=== PATIENT | male | born 1955 | race Caucasian/White ===

== ENCOUNTER 2016-03-30 07:22 | Observation (INO) | payer BC ==
[2016-03-30] MEDS ORDERED: Morphine INJ* 4 MG/ML 1 ML CARPUJECT IV ONE (08:14)
[2016-03-30] MEDS ORDERED: Pantoprazole IV* 40 MG IV ONE (08:14)
[2016-03-30] MEDS ORDERED: Ondansetron INJ* 2 MG/ML VIAL IV ONE (08:14)
[2016-03-30] MEDS: NS 0.9% 1000 ML* 3,000 ML IV ONE ×2 (08:27→08:42)
[2016-03-30] MEDS ORDERED: Acetaminophen TAB* 325 MG PO ONE (08:29)
[2016-03-30 08:31] LABS: Hematocrit 43 % (42-52); Hemoglobin 14.4 g/dl (14.0-18.0); Mean Corpuscular HGB Conc 34 g/dl (31-36); Mean Corpuscular Hemoglobin 30 pg (27-31); Mean Corpuscular Volume 90 fL (80-94); Mean Platelet Volume 9 um3 (7.4-10.4); Red Blood Count 4.76 10^6/ul (4.0-5.4); Red Cell Distribution Width 13 % (10.5-15); White Blood Count 11.8 10^3/ul (3.5-10.8)
[2016-03-30 08:44] LABS: Albumin 4.2 g/dL (3.2-5.2); BUN/Creatinine Ratio 12.4 (8-20); C Reactive Protein 19.08 mg/L (< 5.00); Calcium 9.2 mg/dL (8.6-10.3); EGFR Non-African American 72.3 (>60); Globulin 3.4 g/dL (2-4); Potassium 3.8 mmol/L (3.5-5.0); Total Bilirubin 0.6 mg/dL (0.2-1.0); Total Protein 7.6 g/dL (6.4-8.9)
[2016-03-30 08:45] LABS: Troponin I 0.01 ng/mL (<0.04)
--- NOTE | 2016-03-30 08:57 | RAD ---
INDICATION: Cough, fever. Weakness. Abdominal pain. COMPARISON: September 11, 2005 TECHNIQUE: Dual energy PA and routine lateral views of the chest were obtained. REPORT: LEFT epicardial fat pad noted. Clear lungs and pleural spaces. No alveolar consolidation, focal pulmonary lesion, pleural effusion, pneumothorax. The heart, pulmonary vasculature, and mediastinal contours are unremarkable. Negative for free air beneath the diaphragm. IMPRESSION: No evidence for acute intrathoracic disease.
[2016-03-30 10:13] LABS: Urine Bacteria Absent (Absent); Urine Bilirubin Negative (Negative); Urine Glucose 1+(50 mg/dL) (Negative); Urine Nitrite Negative (Negative)
[2016-03-30] MEDS ORDERED: Iohexol 350* (CONTRAST) 500 ML MDV IV ONE (10:15)
--- NOTE | 2016-03-30 11:36 | RAD ---
INDICATION: Epigastric pain and vomiting. COMPARISON: There are no prior studies available for comparison. TECHNIQUE: A CT scan of the abdomen and pelvis was performed with intravenous and oral contrast following intravenous injection of 92 ml of Omnipaque 300 nonionic contrast. Contiguous axial sections were obtained from the lung bases through the symphysis pubis. Images were reconstructed in the coronal and sagittal planes. FINDINGS: There is mild dependent bilateral lower lobe subsegmental atelectasis. No pleural effusion is present. The liver is normal in size. There is a fluid density lesion in the lateral segment of the left hepatic lobe measuring 1.6 cm in diameter most consistent with a cyst. The spleen is normal in size with a large geographic area of decreased density and enhancement involving the anterior inferior portion of the spleen most consistent with a splenic infarct. The main portions of the splenic artery and vein appear patent. In the region of the splenic hilum thrombus is noted within a vessel which appears to be in a branch of the splenic artery. The pancreas appears to be within normal limits. No calcific gallstones are seen. The kidneys and adrenal glands are normal in size. No hydronephrosis is seen. There is a small cyst present in the upper pole of the right kidney arising from the cortex measuring 1.6 cm in size. The prostate gland is enlarged measuring 6.5 cm in transverse dimension. The aorta demonstrates normal homogeneous contrast opacification and appears widely patent without evidence for significant atherosclerotic change or aneurysm. No significant enlarged retroperitoneal lymph nodes are seen. The stomach, small and large bowel appear nondistended. The appendix is within normal limits. There is mild descending and sigmoid diverticulosis without evidence for diverticulitis. No free intraperitoneal air or fluid is seen. No significant focal osseous abnormality is seen. The results of this exam were discussed with the referring clinician. IMPRESSION: 1. 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 2. SMALL HEPATIC AND RENAL CYSTS. 3. ENLARGED PROSTATE GLAND.
--- NOTE | 2016-03-30 13:49 | ED ---
Kyler Smith Matthew, scribed for Yuniel Sher MD on 03/30/16 at 0820 . Abdominal Pain/Male - HPI Summary HPI Summary: A 60 y/o male presents to the ED with sudden, constant RUQ and epigastric abdominal pain since 14:00 yesterday. The pain is rated 6/10 in severity, and does not radiate. The pain is occasional worse with movement. He is also weak with standing. Associated symptoms include vomiting, nausea, fever - 101.3 at its highest, chills, loose stools, diaphoresis, and abdominal swelling. The patient denies diarrhea, urinary symptoms, trauma, black stools, blood w/ stools , and back pain. He is unable to find a comfortable position. 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 He has not eaten since yesterday and does not recall getting sick immediately after eating. The patient has been out of work since 03/27/16 with flu like symptoms that include cough and diffuse body aches. He has also been taking ibuprofen since 03/26/16 2 tablets every 5 hours. No Hx of diabetes or HTN. - History of Current Complaint Chief Complaint: EDAbdPain Stated Complaint: UPPER CENTER ABD PAIN/VOMITING Time Seen by Provider: 03/30/16 07:54 Hx Obtained From: Patient Onset/Duration: Sudden Onset, Lasting Days - since 14:00 yesterday, Still Present Timing: Constant Severity Initially: Moderate Severity Currently: Moderate Pain Intensity: 6 Pain Scale Used: 0-10 Numeric Location: Discrete At: RUQ, Epigastric Radiates: No Aggravating Factor(s): Movement Alleviating Factor(s): Nothing Associated Signs And Symptoms: Positive: Diaphoresis, Fever - 101.3, Decreased Appetite, Nausea, Vomiting, Other - Abdominal swelling. Negative: Back Pain, Blood in Stool, Urinary Symptoms, Diarrhea - Allergies/Home Medications Allergies/Adverse Reactions: Allergies Allergy/AdvReac Type Severity Reaction Status Date / Time No Known Allergies Allergy Verified 03/30/16 07:42 Home Medications: Home Medications Fluticasone NASAL SPRAY 50MCG* [Flonase NASAL SPRAY 50MCG*] 2 spray BOTH NARES DAILY 03/30/16 [History Confirmed 03/30/16] PMH/Surg Hx/FS Hx/Imm Hx Previously Healthy: Yes Endocrine/Hematology History: Denies: Hx Diabetes Cardiovascular History: Denies: Hx Hypertension Infectious Disease History: No Infectious Disease History: Denies: Traveled Outside the [place] in Last 30 Days - Family History Known Family History: Positive: Cardiac Disease - Social History Lives: With Family Alcohol Use: None Substance Use Type: Reports: None Smoking Status (MU): Unknown if Ever Smoked Review of Systems Positive: Fever, Chills, Skin Diaphoresis Positive: Photophobia ENT: Negative Cardiovascular: Negative Negative: Chest Pain Respiratory: Negative Negative: Shortness Of Breath Gastrointestinal: Other - Swollen Abdomen Positive: Abdominal Pain - RUQ, Epigastric , Vomiting, Nausea Genitourinary: Negative Positive: no symptoms reported Musculoskeletal: Negative Skin: Negative Neurological: Negative Psychological: Normal All Other Systems Reviewed And Are Negative: Yes Physical Exam - Summary Physical Exam Summary: The patient is well-nourished in no acute distress and in no acute pain. The skin is diaphoretic. HEENT: The head is normocephalic and atraumatic. The pupils are equal and reactive. The conjunctivae are clear and without drainage. Nares are patent and without drainage. Mouth reveals dry mucous membranes and the throat is without erythema and exudate. The external ears are intact. The ear canals are patent and without drainage. The tympanic membranes are intact. Neck is supple with full range of motion and non-tender. There are no carotid bruits. There is no neck vein distension. Respiratory: Chest is non-tender. The patient has diminished breath sounds bilaterally. Cardiovascular: Heart is tachycardic and regular rhythm. There is no murmur or rub auscultated. There is no peripheral edema and pulses are symmetrical and equal. Abdomen: The abdomen is soft and with explicit RUQ and epigastric abdominal tenderness. He also has referred RLQ tenderness. No guarding. No rebound. There are normal bowel sounds heard in all four quadrants and there is no organomegaly palpated. Musculoskeletal: There is no back pain noted. Extremities are non-tender with full range of motion. The patient's capillary refill is 3+. There is no peripheral edema or calf tenderness elicited. Neurological: Patient is alert and oriented to person, place and time. The patient has symmetrical motor strength in all four extremities. Cranial nerves are grossly intact. Deep tendon reflexes are symmetrical and equal in all four extremities. Psychiatric: The patient has an appropriate affect and does not exhibit any anxiety or depression. Triage Information Reviewed: Yes Vital Signs On Initial Exam: Initial Vitals Temp Pulse Resp BP Pulse Ox 101.3 F 105 20 137/80 100 03/30/16 07:39 03/30/16 07:39 03/30/16 07:39 03/30/16 07:39 03/30/16 07:39 Vital Signs Reviewed: Yes - Adarsh Coma Scale Coma Scale Total: 15 Diagnostics - Vital Signs Vital Signs Temp Pulse Resp BP Pulse Ox 03/30/16 07:39 101.3 F 105 20 137/80 100 - Laboratory Lab Results: Lab Results 03/30/16 03/30/16 03/30/16 Range/Units 07:42 07:42 07:42 WBC 11.8 H (3.5-10.8) 10^3/ul RBC 4.76 (4.0-5.4) 10^6/ul Hgb 14.4 (14.0-18.0) g/dl Hct 43 (42-52) % MCV 90 (80-94) fL MCH 30 (27-31) pg MCHC 34 (31-36) g/dl RDW 13 (10.5-15) % Plt Count 189 (150-450) 10^3/ul MPV 9 (7.4-10.4) um3 Neut % (Auto) 83.9 H (38-83) % Lymph % (Auto) 7.4 L (25-47) % Columbia % (Auto) 8.2 (1-9) % Eos % (Auto) 0 (0-6) % Baso % (Auto) 0.5 (0-2) % Absolute Neuts (auto) 9.9 H (1.5-7.7) 10^3/ul Absolute Lymphs (auto) 0.9 L (1.0-4.8) 10^3/ul Absolute Monos (auto) 1.0 H (0-0.8) 10^3/ul Absolute Eos (auto) 0 (0-0.6) 10^3/ul Absolute Basos (auto) 0.1 (0-0.2) 10^3/ul Absolute Nucleated RBC 0.01 10^3/ul Nucleated RBC % 0.1 INR (Anticoag Therapy) (0.89-1.11) Sodium 135 (133-145) mmol/L Potassium 3.8 (3.5-5.0) mmol/L Chloride 99 L (101-111) mmol/L Carbon Dioxide 27 (22-32) mmol/L Anion Gap 9 (2-11) mmol/L BUN 13 (6-24) mg/dL Creatinine 1.05 (0.67-1.17) mg/dL Est GFR ( Amer) 93.0 (>60) Est GFR (Non-Af Amer) 72.3 (>60) BUN/Creatinine Ratio 12.4 (8-20) Glucose 135 H (70-100) mg/dL Lactic Acid 1.6 (0.5-2.0) mmol/L Calcium 9.2 (8.6-10.3) mg/dL Total Bilirubin 0.60 (0.2-1.0) mg/dL AST 31 (13-39) U/L ALT 21 (7-52) U/L Alkaline Phosphatase 118 H (34-104) U/L Troponin I 0.01 (<0.04) ng/mL C-Reactive Protein 19.08 H (< 5.00) mg/L Total Protein 7.6 (6.4-8.9) g/dL Albumin 4.2 (3.2-5.2) g/dL Globulin 3.4 (2-4) g/dL Albumin/Globulin Ratio 1.2 (1-3) Amylase 41 (29-103) U/L Lipase 17 (11.0-82.0) U/L Urine Color Urine Appearance Urine pH (5-9) Ur Specific Kennedy (1.010-1.030) Urine Protein (Negative) Urine Ketones (Negative) Urine Blood (Negative) Urine Nitrate (Negative) Urine Bilirubin (Negative) Urine Urobilinogen (Negative) Ur Leukocyte Esterase (Negative) Urine WBC (Auto) (Absent) Urine RBC (Auto) (Absent) Urine Bacteria (Absent) Urine Glucose (Negative) Influenza A (Rapid) (Negative) Influenza B (Rapid) (Negative) 03/30/16 03/30/16 03/30/16 Range/Units 07:42 08:40 09:55 WBC (3.5-10.8) 10^3/ul RBC (4.0-5.4) 10^6/ul Hgb (14.0-18.0) g/dl Hct (42-52) % MCV (80-94) fL MCH (27-31) pg MCHC (31-36) g/dl RDW (10.5-15) % Plt Count (150-450) 10^3/ul MPV (7.4-10.4) um3 Neut % (Auto) (38-83) % Lymph % (Auto) (25-47) % Columbia % (Auto) (1-9) % Eos % (Auto) (0-6) % Baso % (Auto) (0-2) % Absolute Neuts (auto) (1.5-7.7) 10^3/ul Absolute Lymphs (auto) (1.0-4.8) 10^3/ul Absolute Monos (auto) (0-0.8) 10^3/ul Absolute Eos (auto) (0-0.6) 10^3/ul Absolute Basos (auto) (0-0.2) 10^3/ul Absolute Nucleated RBC 10^3/ul Nucleated RBC % INR (Anticoag Therapy) 1.02 (0.89-1.11) Sodium (133-145) mmol/L Potassium (3.5-5.0) mmol/L Chloride (101-111) mmol/L Carbon Dioxide (22-32) mmol/L Anion Gap (2-11) mmol/L BUN (6-24) mg/dL Creatinine (0.67-1.17) mg/dL Est GFR ( Amer) (>60) Est GFR (Non-Af Amer) (>60) BUN/Creatinine Ratio (8-20) Glucose (70-100) mg/dL Lactic Acid (0.5-2.0) mmol/L Calcium (8.6-10.3) mg/dL Total Bilirubin (0.2-1.0) mg/dL AST (13-39) U/L ALT (7-52) U/L Alkaline Phosphatase (34-104) U/L Troponin I (<0.04) ng/mL C-Reactive Protein (< 5.00) mg/L Total Protein (6.4-8.9) g/dL Albumin (3.2-5.2) g/dL Globulin (2-4) g/dL Albumin/Globulin Ratio (1-3) Amylase (29-103) U/L Lipase (11.0-82.0) U/L Urine Color Straw Urine Appearance Clear Urine pH 5.0 (5-9) Ur Specific Kennedy 1.005 L (1.010-1.030) Urine Protein Negative (Negative) Urine Ketones 1+ H (Negative) Urine Blood 1+ H (Negative) Urine Nitrate Negative (Negative) Urine Bilirubin Negative (Negative) Urine Urobilinogen Negative (Negative) Ur Leukocyte Esterase Negative (Negative) Urine WBC (Auto) Absent (Absent) Urine RBC (Auto) Trace(0-2/hpf) (Absent) Urine Bacteria Absent (Absent) Urine Glucose 1+(50 mg/dl) H (Negative) Influenza A (Rapid) Negative (Negative) Influenza B (Rapid) Positive H (Negative) Result Diagrams: 03/30/16 07:42 03/30/16 07:42 Lab Statement: Any lab studies that have been ordered have been reviewed, and results considered in the medical decision making process. - Radiology CXR Xray Interpretation: No Acute Changes - IMPRESSION: No evidence for acute intrathoracic disease. Radiology Interpretation Completed By: Radiologist - CT A/P CT Interpretation: Positive (See Comments) - IMPRESSION: 1. 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 2. SMALL HEPATIC AND RENAL CYSTS. 3. ENLARGED PROSTATE GLAND. CT Interpretation Completed By: Radiologist - EKG 07:46 Cardiac Rate: NL - 99 bpm EKG Rhythm: Sinus Rhythm ST Segment: Non-Specific EKG Interpretation: Normal Irwin; No STEMI Abdominal Pain Fem Course/Dx - Course Assessment/Plan: A 60 y/o male presents to the ED with sudden, constant RUQ and epigastric abdominal pain since 14:00 yesterday. Associated symptoms include vomiting, nausea, fever - 101.3 at its highest, chills, loose stools, diaphoresis, and abdominal swelling. The patient denies diarrhea, urinary symptoms, trauma, black stools, blood w/ stools, and back pain. Labs were reviewed. CT A/P shows large infarct involving the majority of the spleen. Discussed the case with Dr. Santos who stated there was no intervention available and to work-up the cause of the infarct. Discussed the case with Dr. Valenzuela who will admit the patient into his services. - Diagnoses Differential Diagnosis/HQI/PQRI: ACS, AMI, Appendicitis, Diverticulitis, Ischemic Bowel, Pancreatitis, Peptic Ulcer Disease, Pneumonia, Other - influenza , splenic infarct Provider Diagnoses: Splenic infarct, Influenza - Provider Notifications Discussed Care Of Patient With: Dr. Santos (Surgery) at 12:31 -- Notified of patient's history and states there's nothing to do for a spleen infract expect treat with pain medication. Dr. Valenzuela (Hospitalist) at 12:39 -- Notified of patient's history and will admit the patient into his services. Discharge - Discharge Plan Condition: Stable Disposition: ADMITTED TO [facility] Referrals: Gabriele Kendall MD [Primary Care Provider] - The documentation as recorded by the Kyler aleman Matthew accurately reflects the service I personally performed and the decisions made by , Yuniel Sher MD.
[2016-03-30] MEDS ORDERED: oxyCODONE/Acetamin 5/325 MG* TAB PO PRN (13:55)
[2016-03-30] MEDS: Ondansetron INJ* 2 MG/ML VIAL IV PRN (16:49)
[2016-03-30] MEDS: Morphine INJ* 4 MG/ML 1 ML CARPUJECT IV PRN (16:49)
--- NOTE | 2016-03-30 17:03 | HP ---
ADMISSION HISTORY AND PHYSICAL: DATE OF ADMISSION: 03/30/16 PRIMARY CARE PROVIDER: Dr. Kendall. HEALTHCARE PROXY: . CODE STATUS: Full. SOURCE OF INFORMATION: History obtained from interview of the patient and review of past medical records. RELIABILITY: Good. CHIEF COMPLAINT: Abdominal pain. HISTORY OF PRESENT ILLNESS: A 60-year-old male with no known past medical history, no known past medical problems, had been in his usual state of health until approximately 4 days prior to admission started developing aches and pains and low grade fever. He was seen in at urgent care yesterday morning, was diagnosed with URI, and sent home. At approximately 2 p.m., the day prior to admission, he started developing severe epigastric, unrelenting pain that was unchanged with position, associated with nausea and vomiting every 1 to 2 hours that persisted overnight. He was unable to take anything over-the- counter for pain relief. He had minimal intake of food, the last time he ate was approximately 24 hours prior to this time. Because of the continued abdominal pain, nausea, and vomiting, he presented to the emergency room. In the emergency room, he was noted to have a fever of 101.3 and tested positive influenza B. In the setting of continued abdominal pain, CT of abdomen and pelvis was performed that was notable for large splenic infarct. The hospitalist service was consulted for admission. The patient was seen after administration of 4 mg IV morphine, which resulted in good relief. He denies any additional abdominal pain at this time. He feels the muscle soreness which he had been experiencing for the last 4 days was largely improved. He denies any recent travel. No change in medications. No [id number] medications. Several sick contacts at work. No known history of previous thrombus or thromboembolism. PAST MEDICAL HISTORY: Seasonal allergies. MEDICATIONS: [id number] Flomax as needed. ALLERGIES: No known drug allergies. FAMILY HISTORY: Father with CAD and glioblastoma multiforme. SOCIAL HISTORY: No history of tobacco, alcohol, or illicits. 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 REVIEW OF SYSTEMS: As per HPI. Otherwise, all other systems negative. PHYSICAL EXAMINATION GENERAL: Sitting up in bed, alert, oriented, pleasant, in no apparent distress , talks in full sentences. VITAL SIGNS: T-max in the emergency room 101.3, blood pressure 127/80 , heart rate 89, respiratory rate 18, and 98% on room air. HEENT: Oropharynx is clear. Moist mucous membranes. Sclerae are anicteric. NECK: No cervical or supraclavicular lymphadenopathy. LUNGS: Clear to auscultation. HEART: Regular rate and rhythm with no murmurs, rubs, or gallops. ABDOMEN: Soft, nontender, nondistended. Positive bowel sounds. No rebound or guarding and nontender at this time. EXTREMITIES: Warm and well perfused without clubbing, cyanosis, or edema. NEUROLOGIC: He is alert and oriented x3. His cranial nerves II through XII are intact. He has no agitation, anxiety, or depression. DIAGNOSTIC STUDIES/LAB DATA: Microbiology notable for positive influenza B by rapid testing. White blood cell count of 11.8, neutrophils 83.9%, hemoglobin 14.4, platelets 189. BUN 13, creatinine 1.06, lactic acid 1.6, alk phos 118, CRP 19, lipase of 17, amylase of 41. Urine is notable for ketones, blood, and glucose. CT of abdomen and pelvis, impression, liver is normal in size. There is a fluid density lesion in the lateral segment of the left hepatic lobe measuring 1.6 cm in diameter and is most consistent with a cyst. The spleen is normal in size with a large geographic area of decreased density and enhancement involving the anterior and inferior portions of the spleen, most consistent with a splenic infarct. The main portions of the splenic artery and vein appear patent. In the region of the splenic hilum, thrombus is noted within a vessel, which appears to be in a branch of the splenic artery. Pancreas appears to be within normal limits. No calcific gallstones are seen. Enlarged prostate gland. Chest x-ray, impression, no evidence for acute intrathoracic diseases. EKG shows sinus tachycardia at 99 beats per minute. Normal interval and axis. Early R-wave progression. No ST or T-wave changes. ASSESSMENT AND PLAN: This is a 60-year-old man presenting with abdominal pain and fever, found to have influenza B and splenic infarct. 1. Splenic infarct. No obvious etiology for cause. We will admit to telemetry. Monitor for any abnormal arrhythmias, may be predisposed to embolic phenomenon. Additionally check transthoracic echocardiogram with bubble study for PFO as well as any thrombus. No indication for anticoagulation. Continue with oral narcotics as well as IV for breakthrough. Can consider hypercoagulable workup as an outpatient, although I suspect in the setting of influenza, is hypercoagulable causing the splenic infarct. It should be ensured he is up-to-date with his Pneumovax prior to discharge. 2. Influenza B. Outside the window for therapy. Supportive monitoring and treatment. 3. Microscopic hematuria. Repeat urinalysis in the morning. May be secondary to BPH noted on CAT scan. If persistently positive for blood, may warrant referral to Urology as an outpatient for cystoscopy. 4. DVT prophylaxis. Placed on Lovenox in the setting of splenic infarct. 5. Code status is full. [id number]/CPS #: [id number] MTDD
[2016-03-30] MEDS: Enoxaparin(*) 40 MG/0.4 ML SYR SUBCUT SCH (17:55)
[2016-03-30] MEDS: Acetaminophen TAB* 325 MG PO PRN (18:24)
[2016-03-31] MEDS: Morphine INJ* 4 MG/ML 1 ML CARPUJECT IV PRN (00:44)
[2016-03-31] MEDS: Ondansetron INJ* 2 MG/ML VIAL IV PRN ×2 (00:44→09:04)
[2016-03-31] MEDS: Acetaminophen TAB* 325 MG PO PRN ×2 (00:54→09:04)
[2016-03-31 00:55] LABS: Urine Bacteria Absent (Absent); Urine Bilirubin Negative (Negative); Urine Glucose Negative (Negative); Urine Nitrite Negative (Negative)
[2016-03-31] MEDS ORDERED: Influenza VAC *QUAD* 2016-17* 0.5 ML SYRINGE IM ONE (09:00)
[2016-03-31] MEDS ORDERED: Pneumococcal *Vac Polyvalent 0.5 ML VIAL IM ONE (09:00)
--- NOTE | 2016-03-31 14:14 | ECHO ---
Patient: ALEXANDER PATEL [facility] Rec#: [id number] : 1955 Date: 03/31/2016 Age: 60y Height: 175.26 cm / 69.0 in Weight: 70.31 kg / 155.0 lbs Sex: M BSA: 1.85 Room#: 453 Admit Date#: 03/30/2016 Type: Inpatient Referring: Smith Valenzuela MD Reading: Bhanu Grossman DO Reading: Bhanu Grossman DO Division Human Resources Manager: Tita Trevino [facility] Transthoracic Echocardiogram Indication: Fever/ splenic infarct BP: 101/55 HR: 87 Rhythm: NSR Findings History: Fever,Flu B+, + familial cardiac history,hypercoagulable state. Technical Comments: The study quality is good. Completed at 1235. Left Ventricle: The left ventricular chamber size is normal. Mild concentric left ventricular hypertrophy is observed. Global left ventricular wall motion and contractility are within normal limits. There is normal left ventricular systolic function. The estimated ejection fraction is 55-60%. Normal left ventricular diastolic filling is observed. Left Atrium: The left atrial chamber size is normal. Right Ventricle: The right ventricular chamber size and systolic function are within normal limits. Right Atrium: The right atrial cavity size is normal. No atrial septal defected is demonstrated by color Doppler and agitated contrast. Aortic Valve: The aortic valve is trileaflet. There is a trace of aortic regurgitation. There is no evidence of aortic stenosis. Mitral Valve: The mitral valve leaflets appear normal. There is a trace of mitral regurgitation. There is no evidence of mitral stenosis. Tricuspid Valve: The tricuspid valve leaflets are normal. There is trace tricuspid regurgitation. Unable to estimate the right ventricular systolic pressure. There is no tricuspid stenosis. Pulmonic Valve: The pulmonic valve appears normal. There is no evidence of pulmonic regurgitation. There is no pulmonic stenosis. Pericardium: There is no significant pericardial effusion. Aorta: There is no dilatation of the ascending aorta. There is no dilatation of the aortic arch. There is mild dilatation of the aortic root. Venous: The inferior vena cava appears normal in size. There is a greater than 50% respiratory change in the inferior vena cava dimension. Contrast: Normal saline was used as contrast for the bubble study. Intravenous contrast was used to help determine presence of intracardiac shunting. Conclusions The left ventricular chamber size is normal. Mild concentric left ventricular hypertrophy is observed. There is normal left ventricular systolic function with an estimated LVEF of 55-60%. The left atrial chamber size is normal. The right ventricular chamber size and systolic function are within normal limits. No significant valvular abnormalities noted. There is mild dilatation of the aortic root. No atrial septal defected is demonstrated by color Doppler and agitated contrast (negative bubble study) No prior studies available for comparison at time of interpretation. Measurements Name Value Normal Range RVIDd (AP) 2D 2.5 cm (0.9 - 2.6) RVDdMajor (2D) 3 cm (2.2 - 4.4) RAd ISD 4CH 4.8 cm (3.4 - 4.9) RA (A4C)W 2.6 cm (2.9 - 4.6) IVSd (2D) 1.1 cm (0.6 - 1) LVPWd (2D) 1.1 cm (0.6 - 1) LVIDd (2D) 3.6 cm (3.6 - 5.4) LVIDs (2D) 2.5 cm - LV FS (2D) 30 % (25 - 45) Aortic Annulus 2 cm (1.4 - 2.6) Ao root diameter (2D) 3.6 cm (2.1 - 3.5) Ascending Ao 3.4 cm (2.1 - 3.4) Aortic arch 2.2 cm (1.8 - 3.4) Descending Ao 0.5 cm - LA dimension (AP) 2D 3.2 cm (2.3 - 3.8) LAd ISD 4CH 4.5 cm (2.9 - 5.3) LA ISD 4CH W 2.7 cm (2.5 - 4.5) Name Value Normal Range LA ESV SP 4CH (A/L) 24 ml - LA ESV SP 2CH (A/L) 26 ml - LA ESV BP (A/L) 25 ml - LA ESV BP (A/L) index 13.63 ml/m2 - LA ESV SP 4CH (MOD) 23 ml - LA ESV SP 2CH (MOD) 25 ml - Name Value Normal Range MV E-wave Vmax 1 m/sec - MV deceleration time 234 msec - MV A-wave Vmax 0.8 m/sec - MV E:A ratio 1.27 ratio - LV septal e' Vmax 0.08 m/sec - LV lateral e' Vmax 0.1 m/sec - LV E:e' septal ratio 12.5 ratio - LV E:e' lateral ratio 10 ratio - Name Value Normal Range AV Vmax 1.5 m/sec - AV VTI 33.7 cm - AV peak gradient 8.89 mmHg - AV mean gradient 4.66 mmHg - LVOT Vmax 1.4 m/sec - LVOT VTI 30.9 cm - LVOT peak gradient 8.12 mmHg - LVOT mean gradient 4 mmHg - AR PHT 376 msec - AR peak gradient 30.54 mmHg - Name Value Normal Range IVC diameter 1.9 cm - Name Value Normal Range PV Vmax 0.8 m/sec - PV peak gradient 2.7 mmHg -
[2016-03-31 14:42] VITALS: BP 111/65
[2016-03-31] MEDS: Enoxaparin(*) 40 MG/0.4 ML SYR SUBCUT SCH (15:18)
--- NOTE | 2016-04-01 00:42 | DS ---
DISCHARGE SUMMARY: DATE OF ADMISSION: 03/30/16 DATE OF DISCHARGE: 03/31/16 PRIMARY CARE PROVIDER: Dr. Kendall. PRIMARY DIAGNOSES: 1. Splenic infarct. 2. Influenza B. SECONDARY DIAGNOSIS: Microscopic hematuria. MEDICATIONS ON DISCHARGE: Include: 1. Fluticasone 50 mcg 2 sprays both nares daily. 2. Ondansetron ODT 4 mg every 6 hours as needed for nausea, dispensed 20 tabs for patient. PERTINENT IMAGING PERFORMED DURING HOSPITAL STAY: CT of abdomen and pelvis, impression: Large infarct involving the majority of the spleen. Small hepatic and renal cyst. Enlarged prostate gland. Transthoracic echocardiogram, impression: Normal left ventricular chamber size and function, estimated EF of 55% to 60%. Mild concentric left ventricular hypertrophy. Left atrial chamber size is normal. Right ventricular chamber size and systolic function are normal. No significant valvular abnormalities. Mild dilatation of the aortic root. No atrial septal defect demonstrated by color Doppler and agitated contrast/negative bubble study. PERTINENT LABORATORY DATA: White blood cell count on presentation 11.8, platelets 189, hemoglobin 14.8, INR is 1.0, lactic acid 1.6, AST 31, ALT 21, alk phos 118, CRP of 19, lipase of 17. Urine was positive for 1+ blood on presentation, 2+ blood on repeat. Positive influenza B. HISTORY OF PRESENT ILLNESS AND HOSPITAL COURSE: This is a 60-year-old gentleman with no significant past medical history, presented to the hospital with aches and pains as well as severe epigastric pain unrelenting with change in position associated with nausea and vomiting overnight. CAT scan of the abdomen was notable for splenic infarct and the patient as well tested positive for influenza B. Symptoms had started 4 days prior to presentation, he was not given Tamiflu for this reason. He was admitted to telemetry to monitor for any abnormal arrhythmias and an echocardiogram was checked with bubble to evaluate for any potential source of embolization to the splenic artery. Nothing was elucidated. Further testing should be performed as an outpatient should it be warranted. On the day of discharge, the patient is interactive, pleasant, tolerating regular diet. [place] improved from influenza, although was febrile overnight. Able to ambulate around the unit without distress. Lungs are clear to auscultation. Regular rate and rhythm. Abdomen is soft, nontender. Required minimal pain medication previous 24 hours prior to discharge. At followup, please; 1. Additional testing for splenic infarct as deemed necessary between patient and his primary care provider. 2. No other specific labs or vitals that need followup. Reasons to return to the hospital include but not limited to recurrent or worsening symptoms, chest pain, shortness of breath, nausea, vomiting, lightheadedness, loss of consciousness, near loss of consciousness, inability to obtain or tolerate his medications were discussed, the patient acknowledged understanding. The patient was administered pneumococcal polyvalent vaccine prior to discharge. TIME SPENT: Greater than 45 minutes were spent discharging this patient, greater than half spent [id number] with the patient. CC: Dr. Kendall* [id number]/CPS #: [id number] MTDD
== END 2016-03-31 16:45 | disposition home or self-care (01) ==
LOC: ED 07:22 → MEDTELE 13:55
PROVIDERS: ADMIT Internal Medicine; ATTEND Internal Medicine
DX: D73.5 Infarction of spleen (principal); J11.1 Influenza due to unidentified influenza virus with other respiratory manifestations; R31.29 Other microscopic hematuria; N40.0 Benign prostatic hyperplasia without lower urinary tract symptoms; I51.7 Cardiomegaly; Z23 Encounter for immunization
CPT/HCPCS: 36415; 71020; 74177; 80053; 81003; 81015; 82150; 83605; 83690; 84484; 85025; 85610; 86140; 87040; 87502; 90471; 90472; 90686; 90732; 93005; 93306; 96361; 96372; 96374; 96375; 96376; 99283; A9270-GY; G0008; G0009; G0378; J1650; J2270; J2405; Q9967

== ENCOUNTER 2018-05-24 15:08 | Observation (INO) | payer BC ==
[2018-05-24] MEDS ORDERED: Aspirin 81 mg CHEW TAB* 81 MG TAB.CHEW PO ONE (15:44)
--- NOTE | 2018-05-24 15:58 | ED ---
HPI Chest Pain - HPI Summary HPI Summary: The patient is a 63 y/o M presenting to [facility] with a chief complaint of sudden onset CP and SOB right before arrival. [place] [facility] [place] at his normal pace, which he notes is fast, from the [place] [facility] to the main building. While he was walking he had the sudden pain, which he has had before a few times while walking outside during the colder months, but he was concerned today because it's warm outside. The pain at onset was rate 7-8/10, but the pain has since decreased to 1-2/10 currently. The pain was aggravated by deep breaths and was alleviated on its own. He additionally c/o body shakes, but he denies diaphoresis and dizziness. No hx of HTN or DM, but he takes baby Aspirin everyday for a previous blood clot. FHx of cardiac disease. He has never had a stress test. - History of Current Complaint Chief Complaint: EDChestPainROMI Time Seen by Provider: 05/24/18 15:38 Hx Obtained From: Patient Onset/Duration: Started Minutes Ago, Still Present - less severe than at onset Timing: Lasting Minutes Initial Severity: Moderate Current Severity: Mild Pain Intensity: 2 Pain Scale Used: 0-10 Numeric Chest Pain Location: Mid Sternal Chest Pain Radiates: No Character: Pressure/Squeezing Aggravating Factor(s): Deep Breaths Alleviating Factor(s): Nothing Associated Signs and Symptoms: Positive: Shortness of Breath, Other: - body shakes. Negative: Dizziness, Diaphoresis - Additional Pertinent History Primary Care Physician: [id number] - Allergy/Home Medications Allergies/Adverse Reactions: Allergies Allergy/AdvReac Type Severity Reaction Status Date / Time No Known Allergies Allergy Verified 05/24/18 15:30 PMH/Surg Hx/FS Hx/Imm Hx Endocrine/Hematology History: Denies: Hx Diabetes Cardiovascular History: Denies: Hx Hypercholesterolemia, Hx Hypertension Respiratory History: Denies: Hx Asthma Sensory History: Reports: Hx Contacts or Glasses - reading glasses Opthamlomology History: Reports: Hx Contacts or Glasses - reading glasses - Surgical History Surgery Procedure, Year, and Place: Deviated septum 1999, Tonsillectomy at 8 years old Hx Anesthesia Reactions: No Infectious Disease History: No Infectious Disease History: Reports: History Other Infectious Disease - influenza Denies: Traveled Outside the [place] in Last 30 Days - Family History Known Family History: Positive: Cardiac Disease - Social History Alcohol Use: None Hx Substance Use: No Substance Use Type: Reports: None Hx Tobacco Use: No Smoking Status (MU): Never Smoked Tobacco Have You Smoked in the Last Year: No Review of Systems Positive: Other - body shakes. Negative: Skin Diaphoresis Positive: Chest Pain - mid-sternal pressure Positive: Shortness Of Breath Neurological: Other - NEGATIVE: dizziness All Other Systems Reviewed And Are Negative: Yes Physical Exam - Summary Physical Exam Summary: VITAL SIGNS: Reviewed. GENERAL: Patient is a well-developed and nourished male who is lying comfortable in the stretcher. Patient is not in any acute respiratory distress. HEAD AND FACE: No signs of trauma. No ecchymosis, hematomas or skull depressions. No sinus tenderness. EYES: PERRLA, EOMI x 2, No injected conjunctiva, no nystagmus. EARS: Hearing grossly intact. Ear canals and tympanic membranes are within normal limits. MOUTH: Oropharynx within normal limits. NECK: Supple, trachea is midline, no adenopathy, no JVD, no carotid bruit, no c- spine tenderness, neck with full ROM. CHEST: Symmetric, no tenderness at palpation LUNGS: Clear to auscultation bilaterally. No wheezing or crackles. CVS: Regular rate and rhythm, S1 and S2 present, no murmurs or gallops appreciated. ABDOMEN: Soft, non-tender. No signs of distention. No rebound no guarding, and no masses palpated. Bowel sounds are normal. EXTREMITIES: FROM in all major joints, no edema, no cyanosis or clubbing. NEURO: Alert and oriented x 3. No acute neurological deficits. Speech is normal and follows commands. SKIN: Dry and warm Triage Information Reviewed: Yes Vital Signs On Initial Exam: Initial Vitals Temp Pulse Resp BP Pulse Ox 99.1 F 86 18 131/85 96 05/24/18 15:29 05/24/18 15:29 05/24/18 15:29 05/24/18 15:29 05/24/18 15:29 Vital Signs Reviewed: Yes Diagnostics - Vital Signs Vital Signs Temp Pulse Resp BP Pulse Ox 05/24/18 15:29 99.1 F 86 18 131/85 96 - Laboratory Result Diagrams: 05/24/18 15:52 05/24/18 15:52 Lab Statement: Any lab studies that have been ordered have been reviewed, and results considered in the medical decision making process. - Radiology CXR Radiology Interpretation Completed By: Radiologist Summary of Radiographic Findings: No focal airspace consolidation. ED physician has reviewed this report. - EKG 15:23 Cardiac Rate: NL - 94 BPM EKG Rhythm: Sinus Rhythm EKG Comparison: No Significant Change - Similar to 03/30/2016. Summary of EKG Findings: No ST elevations. Re-Evaluation - Re-Evaluation First Eval Re-Evaluation Time: 19:35 Change: Unchanged Comment: I discussed the findings with the patient. We discussed [place] [facility] [place] on results. Chest Pain Course/Dx - Course Assessment/Plan: This patient is a 64-year-old male who presents to the emergency department with chief complaint of having chest pain on exertion. He denies any history of having chest pressure, diabetes, hypertension or dyslipidemia. The patient reports that he had his father having heart trouble at 63-year-old. Test results without any significant abnormality, first troponin is 0.00. EKG shows no ST elevations. Chest x-ray impression: no acute pathology. Second troponin 4 hours apart from first is 0.04, which has increased. Patient was initially given aspirin and metoprolol. I held nitroglycerin since the patient does have any chest pain at this time. I discussed my physical exam, findings and test results with Dr. Barrett from the hospitalist services and he agrees to admit patient to his services. Patient is hemodynamically stable alert and oriented x 3. - Chest Pain Differential Diagnosis/HQI/PQRI: Acute WI, ACS, Angina, CHF, Chest Wall, GI Disease, Pulmonary Edema - Diagnoses Provider Diagnoses: Angina pectoris, Elevated troponin - Provider Notifications Discussed Care Of Patient With: Mechelle Barrett - hospitalist Time Discussed With Above Provider: 20:00 Instructed by Provider To: Other - Dr. Barrett accepts the patient for admission at this time. Discharge - Sign-Out/Discharge Documenting (check all that apply): Patient Departure - Patient will be admitted [place] [facility] [place] care. Patient Received Moderate/Deep Sedation with Procedure: No - Discharge Plan Condition: Stable Disposition: ADMITTED TO [facility] Referrals: Gabriele Kendall MD [Primary Care Provider] - - Billing Disposition and Condition Condition: STABLE Disposition: Admitted to [facility] - Attestation Statements Document Initiated by Ok: Yes Documenting Scribe: Zaida Colvin Provider For Whom Ok is Documenting (Include Credential): Dr. Anoop Beard MD Scribe Attestation: I, Zaida Colvin, scribed for Dr. Anoop Beard MD on 05/24/18 at 2000. Scribe Documentation Reviewed: Yes Provider Attestation: The documentation as recorded by the Zaida aleman accurately reflects the service I personally performed and the decisions made by me, Dr. Anoop Beard MD Status of Scribe Document: Ready
[2018-05-24 16:19] LABS: Hematocrit 40 % (36-46); Hemoglobin 13.7 g/dL (14.0-18.0); Mean Corpuscular HGB Conc 34 g/dL (31-36); Mean Corpuscular Hemoglobin 31 pg (27-31); Mean Corpuscular Volume 92 fL (80-94); Red Blood Count 4.39 10^6 /uL (4.18-5.48); Red Cell Distribution Width 14 % (10.5-15); White Blood Count 8.9 10^3/uL (3.5-10.8)
[2018-05-24 16:21] LABS: Albumin/Globulin Ratio 1.5 (1-3); BUN/Creatinine Ratio 13.9 (8-20); Calcium 8.7 mg/dL (8.6-10.3); EGFR African American 83.8 (>60); EGFR Non-African American 69.3 (>60); Globulin 2.7 g/dL (2-4); Magnesium 2.3 mg/dL (1.9-2.7); Potassium 3.7 mmol/L (3.5-5.0); Total Bilirubin 0.7 mg/dL (0.2-1.0); Total Protein 6.7 g/dL (6.4-8.9)
[2018-05-24 16:24] LABS: ABS Basophils 0 10^3/ul (0-0.2); ABS Eosinophils 0.1 10^3/ul (0-0.6); ABS Monocytes 0.9 10^3/ul (0-0.8); ABS Nucleated RBC 0 10^3/ul; Eosinophil % 0.9 %; Mean Platelet Volume 8.9 fL (7.4-10.4); Nucleated Red Blood Cells % 0.1; Platelet Count 257 10^3/uL (150-450)
[2018-05-24 16:26] LABS: CKMB ng/mL 1.3 ng/mL (0.6-6.3)
[2018-05-24 16:42] LABS: TSH (Thyroid Stimulating Horm) 2.16 mcIU/mL (0.34-5.60)
[2018-05-24 18:03] LABS: Urine Appearance Clear; Urine Bacteria Absent (Absent); Urine Bilirubin Negative (Negative); Urine Blood 2+ (Negative); Urine Color Straw; Urine Glucose 1+(50 mg/dL) (Negative); Urine Ketones Negative (Negative); Urine Nitrite Negative (Negative); Urine Protein Negative (Negative); Urine Red Blood Cell 3+(>10/hpf) (Absent); Urine Specific Gravity 1.008 (1.010-1.030); Urine Urobilinogen Negative (Negative); Urine White Blood Cell 1+(6-10/hpf) (Absent)
[2018-05-24 19:18] LABS: Troponin I 0.04 ng/mL (<0.04)
[2018-05-24] MEDS ORDERED: Metoprolol Tartrate TAB* 25 MG PO ONE (19:48)
[2018-05-24] MEDS ORDERED: Metoprolol Tartrate TAB* 25 MG ONE (20:07)
[2018-05-24] MEDS ORDERED: Acetaminophen TAB* 325 MG PO PRN (21:00)
[2018-05-24] MEDS ORDERED: Pantoprazole IV* 40 MG IV ONE (21:10)
[2018-05-24] MEDS ORDERED: Iohexol 350* (CONTRAST) 500 ML MDV IV ONE (21:14)
--- NOTE | 2018-05-24 23:36 | HP ---
AMENDED REPORT NOW INCLUDES DESIGNATED COSIGNER CC: Dr. Kendall * ADMISSION HISTORY AND PHYSICAL: DATE OF ADMISSION: 05/24/18 ATTENDING FOR THIS ADMISSION: Dr. Mechelle Barrett.* (DICTATED BY ARSENIO DANIELLE NP) PRIMARY CARE PROVIDER: Dr. Gabriele Kendall. CHIEF OF COMPLAINT: Chest pain. HISTORY OF PRESENT ILLNESS: This is a very pleasant 63-year-old male patient who works over in the [employer] that was walking across the parking lot to come [place] [facility] [place]. The patient states that when he was walking across the [facility] [place], he noted some midsternal chest pain. The patient states that when he had this sudden pain, he also had some accompanying shortness of breath. He rated the pain about 7/10. When he got to the meeting, he said that he also was concerned because the pain was not going away and subsequently left the meeting and came to the emergency department for evaluation. In the ED , the patient does have 1 troponin that is mildly elevated at 0.04; however, the patient has no EKG changes. His chest pain has subsequently resolved. The patient is concerned, however, because he states he has had this pain several times over the past few months and was attributing it to environmental factors and was not considering it cardiac in nature. However, pain persisted long enough at this time that the patient sought medical attention. For these reasons, we are being asked to evaluate the patient for admission for chest pain , rule out ACS. PAST MEDICAL HISTORY: He does not have any chronic medical conditions. He did have influenza B in 2017 with a splenic infarct of unclear etiology. He has no further medical problems. PAST SURGICAL HISTORY: He had a deviated septum procedure and a tonsillectomy as a child. HOME MEDICATION: One baby aspirin daily. ALLERGIES: The patient has no known drug allergies. FAMILY HISTORY: Father has cardiac disease. SOCIAL HISTORY: The patient does not smoke, does not drink alcohol. Denies any illicit drug use. REVIEW OF SYSTEMS: A 10-point review of systems is negative except as noted in the HPI above. PHYSICAL EXAMINATION GENERAL: The patient is awake, alert, in no acute distress. VITAL SIGNS: Blood pressure 116/80, heart rate 67, O2 saturation 96% to 100% on room air, respiratory rate 16, and temperature is 99.1. HEENT: The patient is atraumatic and normocephalic. PERRLA with nonicteric sclerae. Oral mucosa is moist. Tongue is midline. NECK: Supple. Nontender. No JVD noted. No carotid bruits auscultated. No thyromegaly appreciated. LUNGS: Clear bilaterally to auscultation with good air entry. No wheezing, rhonchi, or rales noted. CARDIOVASCULAR: S1, S2 present. No murmurs, gallops or rubs noted. Rate and rhythm are regular. He has regular sinus rhythm on telemetry. ABDOMEN: Soft, nontender, and nondistended. Positive bowel sounds in all 4 quadrants. GENITOURINARY: Deferred. MUSCULOSKELETAL: There is no clubbing, no cyanosis, no edema. He has +2 distal pulses palpable. Full range of motion. Gross motor and sensation are intact. He has a steady gait. NEUROLOGIC: Grossly intact. No focal deficits. PSYCHIATRIC: He is cooperative and appropriate. DIAGNOSTIC STUDIES/LAB DATA: Labs: WBC is 8.9, RBC is 4.39, hemoglobin 13.7, hematocrit 40, platelets 257. Sodium 138, potassium 3.7, chloride 104, CO2 of 28, BUN 15, creatinine 1.08, GFR is 69.3, glucose 97, lactic acid 1.9, calcium 8.7, magnesium 2.3. Bilirubin 0.70, AST 18, ALT 22, alkaline phosphatase 127, total creatine kinase 83, CK-MB is 1.3. Troponin first was 0.00, second was 0.04. BNP is 14. Total protein 6.7, albumin 4.0, globulin 2.7, albumin and globulin ratio 1.5. TSH is 2.16. Urinalysis shows 2+ blood, 1+ wbc's, 3+ rbc' s and 1+ glucose. D-dimer was less than 200. Imaging: Chest x-ray shows clear chest, no pleural effusion, no airspace consolidation. Cardiomediastinal silhouette is within normal limits. CTA of the chest has been completed, but it is pending read. IMPRESSION: This is a 63-year-old male patient with no significant medical history that presented with a complaint of midsternal chest pain with some accompanying shortness of breath and weakness. PLAN: The patient will be admitted to observation in telemetry. 1. Chest pain. Rule out acute coronary syndrome. The patient's EKG had no changes. He did have a second troponin that was slightly bumped. We will repeat the troponin in 3 hours and see if there is any change. I have ordered a stress echo for him tomorrow and CTA of the chest to rule out PE. Of significant note, the patient did have splenic infarct last year. He did have workup with Hematology with Dr. Castaneda. He was not diagnosed with any clotting disorder and genetic testing was also negative at that time. However, given that he did have splenic infarct in the past, we are concerned that he may be having clots from an unknown source, so we will evaluate the CTA as soon as it is ready. 2. Hematuria. The patient is not endorsing any urinary complaints, no burning , no frequency, no urgency. He does not have any nitrites or bacteria present. At this point, it is unclear for the reason for his hematuria. We can recheck urine again tomorrow. If it is not clear, the patient may benefit from an ultrasound of the bladder to ensure there is no further acute process. 3. DVT prophylaxis. The patient can be ambulatory with SCDs. He has low risk. DIET: He can have a regular diet this evening and then n.p.o. after midnight. DISPOSITION: Admit to observation. The rest of the patient's course will be determined by further diagnostics, laboratories and any other input from other providers as warranted during this admission. This plan of care has been discussed with Dr. Mechelle Barrett, who is the attending and in agreement with this plan of care. TIME SPENT: Approximately 60 minutes interviewing the patient and developing admission plan of care. ARSENIO DANIELLE, KARLIE [id number]/[facility] #: [id number] SAVAGE
[2018-05-25 12:30] VITALS: BP 119/71
[2018-05-25 13:01] LABS: Urine Appearance Cloudy; Urine Bilirubin Negative (Negative); Urine Blood Negative (Negative); Urine Color Yellow; Urine Glucose Negative (Negative); Urine Ketones Negative (Negative); Urine Nitrite Negative (Negative); Urine Protein Negative (Negative); Urine Specific Gravity 1.026 (1.010-1.030); Urine Urobilinogen Negative (Negative)
--- NOTE | 2018-05-25 17:19 | DS ---
DISCHARGE SUMMARY: DATE OF ADMISSION: 05/24/18 DATE OF DISCHARGE: 05/25/18 PRIMARY DIAGNOSIS: Chest pain. SECONDARY DIAGNOSIS: Hematuria. HOSPITAL COURSE: A 63-year-old male, who works at the [employer], was walking across the parking lot to come to [facility] for a meeting, when he noted midsternal chest pain 09/18. The jordan ent reports that he has had some chest discomfort a couple of years ago when he was walking in the ca ld, but this was more excruciating. Reports pain exactly above the sternum; however, it is not repro ducible. The patient was observed in the hospital and had serial troponins. Initial troponin 0, next troponin 0.04 and the third troponin was 0.03. He did not have any EKG changes on telegraph and teletype operator ing and currently only reports 2/10, mild pain at the exact spot. The patient does not have a histor y of diabetes or hypertension. Interestingly, he did have splenic infarct of unclear etiology last y ear when he was worked up by Dr. Castaneda and workup was noted to be negative. The patient would benefit from stress testing for conclusive evaluation and rule out of acute coronary syndrome. However, at this time, as it is Sunday, stress testing is not available in the hospital and this has been discu ssed with the patient and the patient wants to get his stress test as an outpatient. The outpatient stress test has been ordered for the patient. The patient to follow up with his primary care physici an if he has any further problems. The patient counseled to come back to the hospital if he has any further episodes of chest pain or change in condition. The patient interestingly also noted to have hematuria, which he has not noticed previously. Not no ximena to have any protein in the urine. We will recheck his urine prior to discharge. We will also ge t a vasculitis panel for ANCA in light of his prior splenic infarct and current hematuria to rule out vasculitis. We will also get an MARCIA, glomerular basement membrane antibody and we will get a spot u rine for assessment of protein and urine cytology for preliminary evaluation of possible bladder canc er. If the patient noted to have ongoing hematuria, the next step would be urology evaluation for cy stoscopy for rule out of bladder cancer. This has been discussed with the patient and the patient to follow up with his primary care physician and based on his progress, we will need further evaluation . The patient to have his blood and urine tests as described above prior to his discharge and the pa tient to follow up with his PCP. Vitals and labs noted to be stable at the time of discharge. The patient is not on any medications a nd not started on any new medications. PHYSICAL EXAM: Vitals: Temperature 97.2, heart rate 68, respiratory rate 16, oxygen saturation 97%, blood pressure 117/71. HEENT: NCAT. Heart: S1, S2 present. Regular rate at the time of exam. L ungs: Clear to bilaterally. Abdomen: Soft, nontender. Extremities: No edema. Neuro: Alert and o riented. MEDICATION LIST: As described above. No mediations. FOLLOWUP: 1. The patient to follow up with his PCP. 2. The patient to follow up with [facility] for outpatient stress test on Sunday. 3. The patient to follow up on results of testing ordered prior to his discharge. TIME SPENT: Total time spent on discharge equal to 40 minutes. [id number]/[facility] #: [id number]
== END 2018-05-25 13:45 | disposition home or self-care (01) ==
LOC: ED 15:08 → MEDTELE 21:00
PROVIDERS: ADMIT Internal Medicine; ATTEND Internal Medicine
DX: R07.9 Chest pain, unspecified (principal); R31.9 Hematuria, unspecified; R06.02 Shortness of breath; Z79.82 Long term (current) use of aspirin; J81.1 Chronic pulmonary edema
CPT/HCPCS: 36415; 71045; 71275; 80053; 81003; 81015; 82550; 82553; 83605; 83735; 83880; 84443; 84484; 85025; 85379; 87086; 93005; 96374; 99284; A9270-GY; G0378; Q9967

== ENCOUNTER → 2018-08-21 10:17 | Day surgery (SDC) | payer BC ==
[~2018-08-21 10:17] MED LIST: Heparin 2 UNITS/ML IVPREMIX* 3,000 UNIT/1,500 ML BAG IV ONE; Heparin(*) 1000 UNIT/ML 10 ML VIAL CATH LAB IV ONE; Iohexol 350 (CONTRAST) 200 ML MDV IV ONE; Lidocaine 1% INJ* 10 MG/ML 30 ML SDV ONE; Midazolam* 1 MG/ML 5 ML VIAL (5 MG) ONE; NS 0.9% 1000 ML** 1,000 ML IV SCH; VERAPAMIL 2.5 MG/ML 2 ML VIAL ** 5 mg/2 ml ONE; fentaNYL* 50 MCG/ML 2 ML VIAL (100 MCG VIAL) ONE; nitroGLYCERIN DRIP* 25,000 MCG/250 ML BTL ONE
[2018-08-21 15:53] VITALS: BP 112/73
--- NOTE | 2018-08-22 15:18 | CATH ---
CC: Dr. Anders; Mandi Yanez NP * CATH REPORT: DATE OF PROCEDURE: 08/21/18 - [facility] CATH PRIMARY CARE PHYSICIAN: Dr. Kendall. FIRE MANAGEMENT TECHNICIAN: Dr. Anders and Mandi Yanez NP PROCEDURES: 1. Right radial artery access. 2. Bilateral selective coronary cineangiography. 3. Left heart catheterization. 4. Left ventriculography. HISTORY: A 63-year-old male with ACS presentation in May 2018, stress imaging at that time was low risk. On medical therapy, he has persisted to have functional class I to II angina. PROCEDURE ACCESS: Right radial artery sheath 6F slender. DIAGNOSTIC CATHETERS: 5F TIG4, 5F pigtail. MEDICATIONS: 1. Subcu lidocaine. 2. IV Versed. 3. IV fentanyl. 4. Heparin 3000 units. 5. Verapamil 3 mg. 6. Nitroglycerin 300 mcg IA. HEMODYNAMICS: Initial AO 96/66, LV 86/10-17, no aortic valve gradient on pullback. ANGIOGRAPHY: Left main: The left main is large, has no stenosis. LAD: The LAD is large, supplies a moderate first diagonal which has proximal tubular 50% to 60% stenosis, the LAD continuation then has scattered plaque without focal significant stenosis, supplies a large caliber second diagonal which has proximal tubular 70% stenosis. A few millimeters after the second diagonal, the LAD is subtotally occluded with antegrade HERMINIA-2 flow as well as a [id number] collateral filling of the distal LAD. The LAD is large, extends past the apex, and supplies the distal inferoapical segment. Circumflex: The circumflex is large, dominant, with a large marginal which bifurcates and supplies most of the obtuse margin. This marginal has a proximal 30% stenosis. The circumflex continuation provides several small posterolaterals and ends with a small circumflex PDA. The circumflex has no significant stenosis. RCA: The RCA is small, not dominant, the conus branch and a right ventricular free- wall branch provide [id number] collaterals to the mid LAD and apical LAD respectively. The RCA AV groove continuation has a focal 80% stenosis which is short, subtends only right ventricular branches. LV Gram: Wall motion is normal, estimated LVEF 60%. There is no MR. CONCLUSION: 1. Two-vessel coronary artery disease with complex mid LAD bifurcation lesion involving a large diagonal. He has a low-risk stress test, has non- incapacitating symptoms on medical therapy, but is a candidate for mid LAD revascularization because of concern of extremely high-grade stenosis. I will review his films with [facility]. 2. Normal LV systolic function. 3. Normal left-sided hemodynamics. 4. Successful right radial artery access. [id number]/CPS #: [id number] MTDD
== END | disposition home or self-care (01) ==
LOC: CHICATH 10:17
PROVIDERS: ATTEND Internal Medicine Cardiovascular Disease
DX: I25.119 Atherosclerotic heart disease of native coronary artery with unspecified angina pectoris (principal); R94.39 Abnormal result of other cardiovascular function study; Z79.82 Long term (current) use of aspirin; E78.2 Mixed hyperlipidemia
CPT/HCPCS: 93458; 99156; 99157; J1644; J2250; J3010

== ENCOUNTER 2018-09-18 14:49 | Emergency (ER) | payer BC ==
--- OUTSIDE RECORDS SUMMARY | 2018-09-18 15:28 | XMS REPORT | Continuity of Care Document ---
:1955 External Reference #:[id number] Author Name Anna Liu Care Team Providers Name Role Phone Gabriele Kendall MD Primary Care Physician Unavailable Payers Date Identification Numbers Payment Provider Subscriber Policy Number: [id number] [employer] Angelo Mcneil PayID: [id number] [address] [address] [place] [address] Expires: 2018 Policy Number: [id number] [facility] Ppo Angelo Mcneil Group Number: [id number] [address] [address] Group Name: [id number] [id number] PayID: [id number] Problems Active Problems Provider Date Family history of ischemic heart disease and Chantell Anders M.D. Onset: 2018 other diseases of the circulatory system Mixed hyperlipidemia Chantell Anders M.D. 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 ETOH Use Denies alcohol use Tobacco Use Start: Unknown Patient has never smoked Recreational Drug Use Denies Drug Use Smoking Status Reviewed: Patient has never 08/30/18 smoked Exercise Type/Frequency Exercises regularly currently on hold per Cardiology recommendation Allergies, Adverse Reactions, Alerts Active Allergies Reaction Severity Comments Date Cefzil sensitivity - nausea 06/21/2018 Medications Active Medications SIG Qnty Indications Ordering Provider Date Brilinta 1 tab by mouth 60tabs I25.10 Mandi Yanez NP 08/30/2018 90mg Tablets twice a day Rosuvastatin Calcium 1 by mouth every 90tabs E78.2 Chantell Anders, 2018 40mg day M.D. Tablets Toprol XL 1 tablet by 30tabs Chantell Anders, 08/12/2018 25mg Tablets ER mouth every day M.D. 24HR Aspirin 81 1 by mouth every Unknown 81mg Tablets day DR Loratadine 1 by mouth every Unknown 10mg Tablets day History Medications Rosuvastatin Calcium take 1 tablet by 90tabs E78.2 Chantell Anders, 2018 - mouth every M.D. 08/12/2018 10mg Tablets evening Vital Signs Date Vital Result Comment 08/30/2018 12:47pm Height 69.5 inches 5'9.50" Weight 160.00 lb Clothes/shoes Heart Rate 78 /min Radial BP Systolic Sitting 104 mmHg Lue reg cuff BP Diastolic Sitting 58 mmHg Lue reg cuff BP Systolic Standing 100 mmHg Lue reg cuff BP Diastolic Standing 60 mmHg Lue reg cuff BMI (Body Mass Index) 23.3 kg/m2 Ejection Fraction 55-60% Echo 03/31/2016 08/16/2018 8:46am Height 69.5 inches 5'9.50" Weight 158.00 lb with shoes Heart Rate 60 /min BP Systolic Sitting 105 mmHg Rue, regular cuff BP Diastolic Sitting 75 mmHg Rue, regular cuff BP Systolic Standing 100 mmHg Rue, regular cuff BP Diastolic Standing 70 mmHg Rue, regular cuff BMI (Body Mass Index) 23.0 kg/m2 08/13/2018 11:41am Height 59.5 inches 4'11.50" Weight 159.00 lb with shoes Heart Rate 76 /min BP Systolic Sitting 100 mmHg Lue reg cuff BP Diastolic Sitting 70 mmHg Lue reg cuff BP Systolic Standing 110 mmHg Lue reg cuff BP Diastolic Standing 82 mmHg Lue reg cuff Respiratory Rate 16 /min BMI (Body Mass Index) 31.6 kg/m2 Ejection Fraction 55-60% date 03/31/16 ECHO 06/28/2018 9:28am Height 59.5 inches 4'11.50" Weight 155.00 lb reported Heart Rate 64 /min BP Systolic 120 mmHg Ra<reg BP Diastolic 80 mmHg Ra<reg BP Systolic Sitting 120 mmHg LA< reg BP Diastolic Sitting 80 mmHg LA< reg BP Systolic Standing 96 mmHg LA< reg BP Diastolic Standing 80 mmHg LA< reg BMI (Body Mass Index) 30.8 kg/m2 Ejection Fraction 55%-60% 03/31/16 echo Results Test Date Facility Test Result H/L Range Note Cath Panel 08/14/2018 [facility] Partial 33.1 seconds N 26.0- 38.[address] [place] [address] PTT [phone] CBC Auto Diff 08/14/2018 [facility] White Blood 7.7 10^3/uL N 3.5-10.[address] [place] [address] [phone] Red Blood Count 4.57 10^6/uL N 4.18-5.48 Hemoglobin 14.4 g/dL N 14.0-18.0 Hematocrit 42 % N 42-52 Mean Corpuscular Volume 92 fL N 80-94 Mean Corpuscular Hemoglobin 32 pg High 27-31 Mean Corpuscular HGB Conc 34 g/dL N 31-36 Red Cell Distribution Width 14 % N 10.5-15 Platelet Count 249 10^3/uL N 150-450 Mean Platelet Volume 8.4 fL N 7.4-10.4 Abs Neutrophils 5.5 10^3/uL N 1.5-7.7 Abs Lymphocytes 1.5 10^3/uL N 1.0-4.8 Abs Monocytes 0.6 10^3/uL N 0-0.8 Abs Eosinophils 0.1 10^3/uL N 0-0.6 Abs Basophils 0.0 10^3/uL N 0-0.2 Abs Nucleated RBC 0.0 10^3/uL Granulocyte % 71.1 % Lymphocyte % 19.8 % Monocyte % 8.0 % Eosinophil % 0.9 % Basophil % 0.2 % Nucleated Red Blood Cells % 0.1 Inr/Protime 08/14/2018 [facility] Inr 0.97 N 0.82-1.[address] [place] [address] [phone] Lipid Panel - JFM 08/14/2018 [facility] Creatine 82 U/L N 10- [address] Kinase(CK) [place] [address] [phone] Comp Metabolic 08/14/2018 [facility] Sodium 141 N 135-[address] mmol/[place] [address] [phone] Potassium 4.5 mmol/L N 3.5-5.0 Chloride 105 mmol/L N 101-111 Co2 Carbon Dioxide 31 mmol/L N 22-32 Anion Gap 5 mmol/L N 2-11 Glucose 113 mg/dL High 70-100 Blood Urea Nitrogen 17 mg/dL N 6-24 Creatinine 0.96 mg/dL N 0.67-1.17 BUN/Creatinine Ratio 17.7 N 8-20 Calcium 9.5 mg/dL N 8.6-10.3 Total Protein 6.9 g/dL N 6.4-8.9 Albumin 4.3 g/dL N 3.2-5.2 Globulin 2.6 g/dL N 2-4 Albumin/Globulin Ratio 1.7 N 1-3 Total Bilirubin 0.90 mg/dL N 0.2-1.0 Alkaline Phosphatase 129 U/L High 34-104 Alt 51 U/L N 7-52 Ast 33 U/L N 13-39 Egfr Non- 79.4 >60 Egfr 96.0 >60 2 Lipid Profile 08/14/2018 [facility] Triglycerides 111 mg/dL 3 (Trig/Chol/HDL) [address] [place] [address] [phone] Cholesterol 150 mg/dL 4 HDL Cholesterol 38.5 mg/dL 5 LDL Cholesterol 89 mg/dL 6 1 Standard intensity warfarin therapeutic range: 2.0-3.0 High intensity warfarin therapeutic range: 2.5-3.5 2 Because ethnic data is not always readily available, this report includes an eGFR for both -Americans and non- Americans. The National Kidney Disease Education Program (NKDEP) does not endorse the use of the MDRD equation for patients that are not between the ages of 18 and 70, are , have extremes of body size, muscle mass, or nutritional status, or are non- or non-. According to the National Kidney Foundation, irrespective of diagnosis, the stage of the disease is based on the level of kidney function: Stage Description GFR(mL/min/1.73 m(2)) 1 Kidney damage with normal or decreased GFR 90 2 Kidney damage with mild decrease in GFR 60-89 3 Moderate decrease in GFR 30-59 4 Severe decrease in GFR 15-29 5 Kidney failure <15 (or dialysis) 3 Desirable: <150 Borderline High: 150-199 High: 200-499 Very High: >500 4 Desirable: <200 Borderline High: 200-239 High: >239 5 Low: <40 Desirable: 40-60 High: >60 6 Desirable: <100 Near Optimal: 100-129 Borderline High: 130-159 High: 160-189 Very High: >189 Procedures Date Code Description Status 08/21/2018 10010 Left Heart Cath. Incl S/I Coronaries, Angio S/I V Gram If Completed Done 06/28/2018 61742 EKG Tracing & Interpretation Completed 05/28/2018 72647 Stress ECHO Interpretation/Report Hospital Completed 05/28/2018 23042 Treadmill Interp/Report Only Completed 05/28/2018 25454 Stress Test Supervsn W/Out I/R Completed 03/31/2016 25031 ECHO Transthorasic Realtime 2D W Doppler & Color Flow Hosp Completed Encounters Type Date Location Provider Dx Diagnosis Office Visit 08/16/2018 [facility] Chantell Anders, E78.2 Mixed hyperlipidemia 9:00a [facility] [employer] [place] [facility] [place] 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 Z82.49 Family hx of ischem heart dis and oth dis of the circ sys R94.39 Abnormal result of other cardiovascular function study [facility], 10:47a Assoc,pc MD Lon unspecified Hospitalists R31.9 Hematuria, unspecified Office Visit 05/24/2018 10:47a [facility] Summer R07.9 Chest pain, Assoc,pc Tatianna Doto, unspecified Hospitalists VACATION GUIDE R31.9 Hematuria, unspecified Office Visit 03/31/2016 1:59p [place] Alfred Mtz D73.5 Infarction of Assoc,pc Anne Valenzuela spleen Hospitalists J10.1 Flu due to oth ident influenza virus w oth resp manifest R31.29 Other microscopic hematuria N40.0 Benign prostatic hyperplasia without lower urinry tract symp Office Visit 03/30/2016 1:58p [facility] Smith D73.5 Infarction of Assoc,pc Chuyita Valenzuela. spleen Hospitalists J10.1 Flu due to oth ident influenza virus w oth resp manifest R31.29 Other microscopic hematuria N40.0 Benign prostatic hyperplasia without lower urinry tract symp Plan of Treatment Future Appointment(s):09/20/2018 9:20 am - Chantell Anders M.D. at [facility] [place] - Mandi Yanez NPI25.10 Atherosclerotic heart disease of [place] coronary artery withNew Medication:Brilinta 90 mg - 1 tab by mouth twice a dayNew Labs:Basic Metabolic Panel, Ordered: 08/30/18CBC Auto Diff, Ordered: 08/30/18Inr/Protime, Ordered: 08/30/18Referral:Filiberto Stark MD, Interventional CardiologyFollow up:f/u with Dr. Anders in 3 weeksRecommendations:You have a known complex mid LAD area of blockage that is near total occlusion. If you get resting symptoms ( chest pain, palpitations, shortness of breath, dizziness or passing out) call 911 Continue current medications and [employer] new medication Brilinta 90mg tablet, take 1 tablet by mouth twice aday starting tonight. Follow up with Dr. Cedillo on 09/09/2018 at 8am for cardiac cath with probablyintervention. Do not take NSAIDs such as Motrin, Excedrin, ibuprofen while on Aspirin and Brilinta.Take Tylenol for pain. If you do not hear from Dr. Cedillo by next sunday please contact hispractice at [phone]
--- NOTE | 2018-09-18 16:11 | ED ---
Lower Extremity - HPI Summary HPI Summary: The patient is a 63 y/o M presenting to [facility] with a chief complaint of sudden onset lump in the posterior right thigh starting this morning. He reports that he just found the lump this morning, but is concerned for a DVT because he had two cardiac stents placed in March 2018 at [facility]. He currently takes Brilinta. He denies CP and calf pain. His pain is rated 1/10 in severity. Hx of angina. FHx of cardiac disease. Nonsmoker, rare EtOH, no substance use. - History of Current Complaint Chief Complaint: EDExtremityLower Stated Complaint: RIGHT LEG PAIN POSSIBLE BLOOD CLOTT Time Seen by Provider: 09/18/18 16:02 Hx Obtained From: Patient Mechanism Of Injury: Unknown - found this morning without trauma Onset of Pain: Immediate Onset/Duration: Hours - this morning Severity Initially: Mild Severity Currently: Mild Pain Intensity: 1 Pain Scale Used: 0-10 Numeric Timing: Lasting Hours Location: Is Discrete @ - right posterior thigh Character Of Pain: Aching Associated Signs And Symptoms: Positive: Other - NEGATIVE: chest pain, calf pain Aggravating Factor(s): Nothing Alleviating Factor(s): Nothing Able to Bear Weight: Yes - Allergies/Home Medications Allergies/Adverse Reactions: Allergies Allergy/AdvReac Type Severity Reaction Status Date / Time cefprozil [From Cefzil] Allergy Nausea Verified 08/21/18 11:31 Home Medications: Home Medications Metoprolol Succinate XL TAB* [Toprol XL TAB*] 25 mg PO DAILY 09/18/18 [History Confirmed 09/18/18] Ticagrelor* [Brilinta 90 MG*] 90 mg PO BID 09/18/18 [History Confirmed 09/18/18] PMH/Surg Hx/FS Hx/Imm Hx Endocrine/Hematology History: Denies: Hx Diabetes Cardiovascular History: Reports: Hx Angina Denies: Hx Coronary Artery Disease, Hx Hypercholesterolemia, Hx Hypertension , Hx Myocardial Infarction, Hx Pacemaker/ICD, Hx Valvular Heart Disease Respiratory History: Denies: Hx Asthma Sensory History: Denies: Hx Contacts or Glasses, Hx Hearing Aid Opthamlomology History: Denies: Hx Contacts or Glasses - Surgical History Surgery Procedure, Year, and Place: Deviated septum 1999, Tonsillectomy at 8 years old, lasiks sx Hx Anesthesia Reactions: No - Immunization History Date of Influenza Vaccine: 12/2017 Infectious Disease History: No Infectious Disease History: Reports: History Other Infectious Disease - influenza states 3 years ago Denies: Traveled Outside the [place] in Last 30 Days - Family History Known Family History: Positive: Cardiac Disease - Social History Alcohol Use: Rare Hx Substance Use: No Substance Use Type: Reports: None Hx Tobacco Use: No Smoking Status (MU): Never Smoked Tobacco Have You Smoked in the Last Year: No Review of Systems Negative: Chest Pain Positive: Other - POSITIVE: lump in right posterior thigh; NEGATIVE: calf pain All Other Systems Reviewed And Are Negative: Yes Physical Exam - Summary Physical Exam Summary: VITAL SIGNS: Reviewed. GENERAL: Patient is a well-developed and nourished male who is lying comfortable in the stretcher. Patient is not in any acute respiratory distress. HEAD AND FACE: No signs of trauma. No ecchymosis, hematomas or skull depressions. No sinus tenderness. EYES: PERRLA, EOMI x 2, No injected conjunctiva, no nystagmus. EARS: Hearing grossly intact. Ear canals and tympanic membranes are within normal limits. MOUTH: Oropharynx within normal limits. NECK: Supple, trachea is midline, no adenopathy, no JVD, no carotid bruit, no c- spine tenderness, neck with full ROM. CHEST: Symmetric, no tenderness at palpation. LUNGS: Clear to auscultation bilaterally. No wheezing or crackles. CVS: Regular rate and rhythm, S1 and S2 present, no murmurs or gallops appreciated. ABDOMEN: Soft, non-tender. No signs of distention. No rebound, no guarding, and no masses palpated. Bowel sounds are normal. EXTREMITIES: FROM in all major joints, no edema, no cyanosis or clubbing. NEURO: Alert and oriented x 3. No acute neurological deficits. Speech is normal and follows commands. SKIN: Dry and warm. Triage Information Reviewed: Yes Vital Signs On Initial Exam: Initial Vitals Temp Pulse Resp BP Pulse Ox 98.0 F 71 16 126/82 96 09/18/18 15:14 09/18/18 15:14 09/18/18 15:14 09/18/18 15:14 09/18/18 15:14 Vital Signs Reviewed: Yes Diagnostics - Vital Signs Vital Signs Temp Pulse Resp BP Pulse Ox 09/18/18 15:14 98.0 F 71 16 126/82 96 - Laboratory Result Diagrams: 09/18/18 16:09 09/18/18 16:09 Lab Statement: Any lab studies that have been ordered have been reviewed, and results considered in the medical decision making process. - Ultrasound RLE Venous Doppler US Ultrasound Interpretation Completed By: Radiologist Summary of Ultrasound Findings: No evidence of deep venous thrombosis is identified. ED physician has reviewed this radiology report. Re-Evaluation - Re-Evaluation First Eval Re-Evaluation Time: 17:15 Comment: I discussed findings and discharge with the patient. Lower Extremity Course/Dx - Course Assessment/Plan: The patient is a 63 y/o M presenting to [facility] with a chief complaint of sudden onset lump in the posterior right thigh starting this morning. He reports that he just found the lump this morning, but is concerned for a DVT because he had two cardiac stents placed in March 2018 at [facility]. He currently takes Brilinta. He denies CP and calf pain. His pain is rated 1/10 in severity. Hx of angina. FHx of cardiac disease. Nonsmoker, rare EtOH, no substance use. Patients ultrasound is negative for DVT. Therefore, the patient will be discharged home with follow-up with PCP. I discussed all the findings and test results with the patient. Patient was instructed to return to the emergency room immediately if any of the symptoms return or worsen. Plan of care was discussed with the patient and understands and agrees. All questions were answered at patient satisfaction. There were no further complaints or concerns. Lung exam before discharge: CTA B/L. Good air exchange. No wheezing or crackles heard. CVS: S1 and S2 present. No murmurs appreciated. Patient is alert and oriented x 3. Patient is hemodynamically stable. Patient will be discharged home with follow up PCP in the next 2-3 days. - Diagnoses Provider Diagnoses: Acute pain of right lower extremity Discharge - Sign-Out/Discharge Documenting (check all that apply): Patient Departure - Patient will be discharged home. Patient Received Moderate/Deep Sedation with Procedure: No - Discharge Plan Condition: Stable Disposition: HOME Patient Education Materials: Leg Pain (ED) Referrals: Gabriele Kendall MD [Primary Care Provider] - 3 Days Additional Instructions: Follow up with your primary care provider in 2-3 days. RETURN TO THE EMERGENCY DEPARTMENT FOR ANY NEW OR WORSENING SYMPTOMS. - Billing Disposition and Condition Condition: STABLE Disposition: Home - Attestation Statements Document Initiated by Scribe: Yes Documenting Scribe: Zaida Colvin Provider For Whom Ok is Documenting (Include Credential): Dr. Anoop Beard MD Scribe Attestation: Zaida Smith scrlibradoed for Dr. Anoop Beard MD on 09/18/18 at 1848. Scribe Documentation Reviewed: Yes Provider Attestation: The documentation as recorded by the Zaida aleman accurately reflects the service I personally performed and the decisions made by me, Dr. Anoop Beard MD Status of Scribe Document: Ready
[2018-09-18 16:32] LABS: Hematocrit 45 % (42-52); Hemoglobin 15.3 g/dL (14.0-18.0); Mean Corpuscular HGB Conc 34 g/dL (31-36); Mean Corpuscular Hemoglobin 31 pg (27-31); Mean Corpuscular Volume 92 fL (80-94); Mean Platelet Volume 8.1 fL (7.4-10.4); Platelet Count 273 10^3/uL (150-450); Red Blood Count 4.89 10^6 /uL (4.18-5.48); Red Cell Distribution Width 14 % (10-15); White Blood Count 8.5 10^3/uL (3.5-10.8)
[2018-09-18 16:41] LABS: Activated Partial Thrombo Time 35.5 seconds (26.0-38.0); INR 0.97 (0.82-1.09)
[2018-09-18 16:53] LABS: Albumin 4.8 g/dL (3.2-5.2); Albumin/Globulin Ratio 1.4 (1-3); BUN/Creatinine Ratio 12.4 (8-20); Calcium 9.9 mg/dL (8.6-10.3); EGFR African American 79.6 (>60); EGFR Non-African American 65.8 (>60); Globulin 3.4 g/dL (2-4); Potassium 4.3 mmol/L (3.5-5.0); Total Bilirubin 1.3 mg/dL (0.2-1.0); Total Protein 8.2 g/dL (6.4-8.9)
[2018-09-18 17:35] VITALS: BP 104/69
== END 2018-09-18 17:29 | disposition home or self-care (01) ==
LOC: ED 14:49
DX: M79.651 Pain in right thigh (principal); Z79.02 Long term (current) use of antithrombotics/antiplatelets; Z95.5 Presence of coronary angioplasty implant and graft; Z88.1 Allergy status to other antibiotic agents
CPT/HCPCS: 36415; 80053; 85027; 85610; 85730; 99282